=== PATIENT | female | born 1985 | race Caucasian/White ===

== ENCOUNTER → 2016-08-04 | Outpatient (CLI) | payer BC ==
[~2016-08-04] MED LIST: FERROUS SULFAT324 MG PO; MOTRIN400 MG PO; PERCOCET 5/3251 EACH PO; PRENATAL1 TA1 PO
== END ==
LOC: LAB 16:49
DX: Z34.80 Encounter for supervision of other normal pregnancy, unspecified trimester (principal)

== ENCOUNTER 2016-08-24 05:36 | Inpatient (IN) | payer BC ==
[~2016-08-24] VITALS: Ht 144.8 cm; Wt 60.8 kg
[~2016-08-24 05:36] MED LIST changes: -FERROUS SULFAT324 MG PO; +FERROUS SULFAT325 M2 PO
--- OUTSIDE RECORDS SUMMARY | 2016-08-24 06:12 | External Medical Summary Rpt ---
Author Author [employer] Organization [employer] Address Unknown Phone Unavailable Purpose Continuity of Care Document - through 2016
--- OUTSIDE RECORDS SUMMARY | 2016-08-24 06:12 | External Medical Summary Rpt ---
Author Author , Organization [employer] Address Unknown Phone Unavailable Purpose Continuity of Care Document - through 2016
--- OUTSIDE RECORDS SUMMARY | 2016-08-24 06:12 | External Medical Summary Rpt ---
Author Author , Organization [employer] Address Unknown Phone Unavailable Purpose Continuity of Care Document - 02-22-2016 through 2016 Immunization Name Date Route CVX Reacti Commen Provid Is Given on t er Refuse d Influe 140 Histor KHAFAG No nza, 2016 uscula ical I P-Free r Inform AYMAN ation - Source Unspec ified
[2016-08-24 06:18] LABS: LYMPH # 1.6 K/mm3 (0.7-4.5)
[2016-08-24 06:24] LABS: HEMOGLOBIN 12.5 g/dL (12.2-16.2)
[2016-08-24 06:32] LABS: ABO BLOOD TYPE O; RH BLOOD TYPE POSITIVE
[2016-08-24 06:37] VITALS: BP 111/58
--- NOTE | 2016-08-24 08:07 | Operative Note ---
Procedure/Operative Record Procedure Date of procedure: 08/24/16 Pre-Op Dx: Term , previous section Post-Op Dx: Term , previous section Procedure performed: Repeat lower segment transverse section Surgeon: Dr. Abel Sauceda Thread Puller(s): Terri Tejeda Anesthesia: Gage Gamboa EBL (ml): 600 Clinical note: Barbi is a 30-year-old 2 para 1 who is had a previous section for breech presentation. As result of that she was offered repeat lower segment transverse section at term. Some benefits of surgery discussed the patient prior to surgery. Operative findings: She delivered a live-born female child at 7:39 AM on the morning of August 24, 2016. The baby had Apgars of 9 at 1 minute and 9 at 5 minutes. PH was 7.38. Ovaries and tubes appeared normal. Operative note: She was taken to the operating room where epidural anesthesia was found be adequate. She was prepped and draped in normal sterile fashion in the supine position with a leftward tilt. A Mathews catheter was in the bladder. A Pfannenstiel skin incision was made with knife then carried through to the underlying layer of fascia with cautery. The fascia was opened in the midline with cautery and extended laterally using Suggs scissors. [place] clamps were applied to the superior aspect of the fascial incision which was tented up and the underlying rectus muscles dissected off using cautery. The Agnieszka clamps were then applied to the inferior aspect of the fascial incision which in a similar fashion was tented up and the underlying rectus muscles dissected off using cautery. The rectus muscles were then in the midline, the peritoneum identified, and entered sharply with Metzenbaum scissors. This incision was then extended superiorly and inferiorly with cautery. We had good visualization of the bladder inferiorly. The bladder peritoneum was then opened in the midline and extended laterally using Metzenbaum scissors. A bladder flap was created digitally. The lower blade of the [place] was inserted so as to push the bladder out of the way. Transverse incision was made through the uterine muscle to the amnion. This incision was then extended laterally using fingers traction. The amnion was entered sharply with knife. The infant's head was then delivered atraumatically. This was followed by the anterior shoulder and the rest of the infant's body atraumatically. The oropharynx and nasopharynx were bulb suctioned. The was then handed off to Dr. Amos who assigned Apgars of 9 at 1 minute and 9 at 5 minutes. We then obtained cord blood as well as cord pH. The pH was 7.38. Using gentle traction on the cord and countertraction on the fundus I was able to easily deliver the placenta intact. It had a normal three-vessel cord. The uterus was then cleared of clots and debris and exteriorized from the abdominal cavity. The uterine incision was then closed using running 0 Vicryl suture in a locked fashion. A second layer of the same suture was used to imbricate the first layer. The bladder peritoneum was then closed using running 2-0 Vicryl suture in a locked fashion. The gutters and cul-de-sac were then cleared of clots and debris and the uterus was returned the abdominal cavity. Once again hemostasis was assured. The peritoneum was grasped with Rema clamps and closed using running 2-0 Vicryl suture. The rectus muscles were then reapproximated using running 0 Vicryl suture. The fascia was closed using running #1 Vicryl suture. The subcutaneous tissues were then irrigated with warm water followed by closure Laisha's fascia using running 2-0 Monocryl suture. The skin was closed with trudi. I then cleaned the skin with Hibiclens. Sterile dressings were applied. She tolerated the procedure well and was taken to the recovery room in excellent condition. All sponges minute and needle counts were correct. Estimate a blood loss was approximately 600 mL. Conplications: None Specimens: Products of conception at 0807
--- NOTE | 2016-08-24 08:14 | Anesthesia Record ---
Anesthesia Record Part I Total IV fluids: 3000 EBL (ml): 600 Urine Output: 275 B/P: 103/63 % SaO2: 98 Pulse: 88 Resps: 16 Temp: 97.6 Patient is: Awake, Stable Stable to PACU at: 0810 at 0814
--- NOTE | 2016-08-24 08:15 | Anesthesia Record ---
Anesthesia Record Part II Discharge time: 0840 Destination: OB PACU nurse assessment review? Yes Patient is: Awake, Stable Anesthesia complications? No at 0814
--- NOTE | 2016-08-24 08:46 | PHARMACY CLINIC NOTE ---
Patient Demographics Patient Demographics Admission date: 08/24/16 Date: 08/24/16 Time: 0845 Allergies Coded Allergies: No Known Allergies (08/21/16) HEIGHT- FT: 4 IN: 9.00 K.782 VTE General Information Labs: Laboratory Tests 08/24 0600 Hematology Hgb (12.2 - 16.2 g/dL) 12.5 Hct (37.0 - 47.0 %) 36.1 L Plt Count (142 - 424 K/mm3) 136 L Disclaimer The following section includes nursing documentation that has been pulled in for pharmacy review. VTE prophylaxis NQF [id number] VTE prophylaxis ordered? Yes Type of prophylaxis/treatment: ICD at 0845
[2016-08-24 20:42] VITALS: BP 123/72
[2016-08-25 06:49] LABS: HEMOGLOBIN 10.5 g/dL (12.2-16.2)
[2016-08-25 08:15] VITALS: BP 109/53
--- NOTE | 2016-08-25 08:51 | ACUTE CARE PROGRESS NOTE (QUA) ---
Progress Notes Subjective Date 08/25/16 Time 0850 Note She is doing very well this morning. She is eating and drinking and ambulating. She is bottlefeeding. Her lochia is normal. Her incision is clean and dry. Patient/family reports: feeling better, no complaints Objective Findings Last VS-Temp:97.7 B/P:109/53 Pulse:73 Resp:18 SaO2:97 ROOM AIR Last weight lbs:134 oz:0 K.782 Method:Stated Laboratory Tests 08/25/16 0605: Hgb 10.5 L, Hct 30.5 L Exam General appearance: normal appearance, alert, awake, no acute distress Reviewed: vital signs, lab results Assessment/Plan Problem List 1. section Status: Acute Patient condition Improving, Stable Plan: continue current care This inpt stay is expected to cross 2 MNs from start of care Yes Comments: She is doing very well this morning. We will plan to send her home in 48 hours. at 0850
[2016-08-25 19:45] VITALS: BP 118/65
[2016-08-26 09:07] VITALS: BP 120/62
--- NOTE | 2016-08-26 09:09 | ACUTE CARE PROGRESS NOTE (QUA) ---
Progress Notes Subjective Date 08/26/16 Time 0908 Note She continues to do very well. She is eating and drinking and ambulating. She is bottlefeeding. Her lochia is normal. Well controlled. Patient/family reports: feeling better, no complaints Objective Findings Last VS-Temp:97.8 B/P:120/62 Pulse:92 Resp:18 SaO2:97 ROOM AIR Last weight lbs:134 oz:0 K.782 Method:Stated Exam General appearance: normal appearance, alert, awake, no acute distress Reviewed: vital signs, lab results Assessment/Plan Problem List 1. section Status: Acute Patient condition Improving, Stable Plan: continue current care This inpt stay is expected to cross 2 MNs from start of care Yes Comments: She is doing very well and we will plan to send her home tomorrow. at 0908
[2016-08-26 19:40] VITALS: BP 117/63
[2016-08-27 08:30] VITALS: BP 128/58
[2016-08-27] MEDS ORDERED: PERCOCET 5/3251 EACH PO (08:38)
--- NOTE | 2016-08-27 09:39 | ACUTE CARE PROGRESS NOTE (QUA) ---
Progress Notes Subjective Date 08/27/16 Time 0938 Note She is doing very well. She is eating and drinking and ambulating. She is bottlefeeding. Her lochia is normal. Her incision is clean and dry. Patient/family reports: feeling better, no complaints Objective Findings Last VS-Temp:97.6 B/P:117/63 Pulse:93 Resp:18 SaO2:97 ROOM AIR Last weight lbs:134 oz:0 K.782 Method:Stated Exam General appearance: normal appearance, alert, awake, no acute distress Reviewed: vital signs, lab results Assessment/Plan Problem List 1. section Status: Acute Patient condition Improving, Stable Plan: continue current care, initiate discharge plan This inpt stay is expected to cross 2 MNs from start of care Yes Comments: She is doing very well this morning. We will plan to send her home today. at 0938
--- NOTE | 2016-08-27 09:41 | Discharge Summary ---
Discharge Summary Admission date: 08/24/16 Discharge date: 08/27/16 Discharge diagnoses: Term , previous section, repeat lower segment transverse section. Clinical note: She is a 30-year-old 2 now para 2 who is 39 weeks gestational age. She's had a previous section so she was offered repeat lower segment transverse section at term. Course in hospital: On August 24, 2016 she underwent a repeat lower segment transverse section. She has done well and has remained afebrile throughout her hospitalization. She is eating and drinking and ambulating. She delivered a live -born female child at 7:39 AM. The baby weighed 7 lbs. 6 oz. and was 18 inches long. She had Apgars of 9 at 1 minute and 9 at 5 minutes. She has O positive blood, she is rubella immune and was group B streptococcus negative. Laboratory Tests 08/25/16 0605: Hgb 10.5 L, Hct 30.5 L Plans for ongoing care: She is discharged home to follow-up with me in approximately 2 weeks' time. Discharge medications She will continue with her vitamins and iron. She'll take ibuprofen at home. She was given a prescription for Percocet 5/325, 30 tablets. DC/follow-up instructions She was given the usual instructions with respect to limiting her activity, driving and sexual activity. She was given instructions with respect to wound care. Condition at discharge Stable and improved at 0940
== END 2016-08-27 09:48 | disposition home or self-care (01) | DRG 766 ==
LOC: SDC 05:36 → 2ND 06:08 → OB 06:34 → SDC 07:30 → OB 08-27 09:48
PROVIDERS: Nurse Practitioner Obstetrics & Gynecology
PROC: 10D00Z1 Extraction of Products of Conception, Low, Open Approach (ICD-10-PCS; principal; 2016-08-24 07:30)
DX: O65.5 Obstructed labor due to abnormality of maternal pelvic organs (principal); N85.8 Other specified noninflammatory disorders of uterus; O34.211 Maternal care for low transverse scar from previous cesarean delivery; Z3A.39 39 weeks gestation of pregnancy; Z37.0 Single live birth
CPT/HCPCS: G0238; J2405